=== PATIENT | male | born 1995 | race Two or more races ===

== ENCOUNTER 2024-03-07 19:30 | Emergency (ER) | payer OTHER ==
[~2024-03-07] VITALS: Ht 170.2 cm; Wt 99.8 kg
[2024-03-07] MEDS ORDERED: EQUETRO200 MG PO (19:52)
[2024-03-07] MEDS ORDERED: KETOROLAC TROMETHAMINE 30 MG VIAL IM ONE (20:15)
== END 2024-03-07 21:57 | disposition home or self-care (01) ==
LOC: ER 19:31
DX: S86.092A Other specified injury of left Achilles tendon, initial encounter (principal); W19.XXXA Unspecified fall, initial encounter; Y93.67 Activity, basketball; Y92.89 Other specified places as the place of occurrence of the external cause; Y99.8 Other external cause status